=== PATIENT | female | born 1970 | race American Indian/Alaskan Native ===

== ENCOUNTER 2017-05-19 20:20 | Emergency (ER) | payer BC, OTHER ==
[2017-05-19 20:20] VITALS: BMI 23.0
[2017-05-19 21:47] VITALS: TEMP 98; O2SAT 100
[2017-05-19] MEDS ORDERED: Magnesium Sulfate 2 gm/50 ml 2 GM/50 ML BAG IV STA (22:37)
[2017-05-19] MEDS ORDERED: Sodium Chloride 0.9% 1,000 ML IV STA (22:39)
--- NOTE | 2017-05-19 22:52 | ED PDOC ---
HPI: Headache Time Seen by Provider: 05/19/17 22:03 Chief Complaint (Nursing): Headache Chief Complaint (Provider): Headache and Dizziness History Per: Patient History/Exam Limitations: no limitations Onset/Duration Of Symptoms: Days (x1) Current Symptoms Are (Timing): Still Present Additional Complaint(s): 46 year old female with a past medical history of migraines, who presents to the ED complaining of headache and dizziness x 1 day. States she 's felt positional dizziness with a room spinning sensation. Also reports feelings of nausea throughout the day. States that during the afternoon her migraines began to peak. Reports typically taking Maxalt for migraines, but does not know if she should take it due to her Vertigo. Denies vomiting, but confirms intense nausea. Denies fever, cough, and shortness of breath. Also confirms light and sound sensitivity, but states they are typically associated with her migraines. PMD: Provider TBD Past Medical History Reviewed: Historical Data, Nursing Documentation, Vital Signs Vital Signs: Last Vital Signs Temp 98.0 F 05/19/17 21:44 Pulse 78 05/19/17 21:44 Resp 16 05/19/17 21:44 BP 138/72 05/19/17 21:44 Pulse Ox 100 05/19/17 21:44 - Medical History PMH: Migraine - Surgical History Surgical History: No Surg Hx - Family History Family History: States: Unknown Family Hx - Social History Current smoker - smoking cessation education provided: No Alcohol: None Drugs: Denies - Home Medications Home Medications: Ambulatory Orders Medication Instructions Recorded Prednisone 20 mg PO BID #8 tab 02/16/15 hydrOXYzine HCl [Atarax] 25 mg PO BID #10 tab 02/16/15 Meclizine [Antivert] 25 mg PO Q6 PRN #20 tab 05/20/17 Ondansetron ODT [Zofran ODT] 4 mg PO Q6 PRN #16 odt 05/20/17 - Allergies Allergies/Adverse Reactions: Allergies Allergy/AdvReac Type Severity Reaction Status Date / Time diphenhydramine Allergy URTICARIA Verified 05/19/17 21:43 [From Benadryl] metaxalone [From Skelaxin] Allergy URTICARIA Verified 05/19/17 21:43 Review of Systems ROS Statement: Except As Marked, All Systems Reviewed And Found Negative Constitutional: Negative for: Fever Respiratory: Negative for: Cough, Shortness of Breath Gastrointestinal: Positive for: Nausea. Negative for: Vomiting Neurological: Positive for: Headache, Dizziness Physical Exam - Reviewed Nursing Documentation Reviewed: Yes Vital Signs Reviewed: Yes - Physical Exam Appears: Positive for: Non-toxic, No Acute Distress Head Exam: Positive for: ATRAUMATIC, NORMAL INSPECTION, NORMOCEPHALIC Skin: Positive for: Normal Color, Warm, Dry. Negative for: Rash Eye Exam: Positive for: Normal appearance, EOMI, PERRL, Other (photosensitivity , but no photophobia). Negative for: Nystagmus Neck: Positive for: Normal, Painless ROM, Supple Cardiovascular/Chest: Positive for: Regular Rate, Rhythm. Negative for: Murmur Respiratory: Positive for: Normal Breath Sounds. Negative for: Respiratory Distress Gastrointestinal/Abdominal: Positive for: Normal Exam, Bowel Sounds, Soft. Negative for: Tenderness Back: Positive for: Normal Inspection. Negative for: L CVA Tenderness, R CVA Tenderness, Vertebral Tenderness Extremity: Positive for: Normal ROM. Negative for: Pedal Edema, Deformity Neurologic/Psych: Positive for: Alert, Oriented (x3). Negative for: Motor/ Sensory Deficits - Laboratory Results Result Diagrams: 05/19/17 23:19 05/19/17 23:19 - ECG O2 Sat by Pulse Oximetry: 100 (RA) Pulse Ox Interpretation: Normal Medical Decision Making Medical Decision Making: Time: 22:26 Initial Impression: 46 y/o female with headache, nausea, and vertiginous dizziness Initial Plan: --CMP --CBC w/ differential --Antivert 25mg PO --Magnesium Sulfate 2gm in 50ml IV --Toradol 15mg --Zofran Inj 4mg IV --Heplock Insertion --Reevaluation Patient reports headache has resolving. Still complains of mild intermittent persistent dizziness. Prescribed an additional dose of Mezicline. Labs show no clinically significant abnormalities besides anemia. She states she has chronic anemia. Patient is stable for discharge. Diagnosis is migraine and vertigo. Scribe Attestation: Documented by Addison Lagos, acting as a scribe for Marcell Morales MD. Provider Scribe Attestation: All medical record entries made by the Scribe were at my direction and personally dictated by me. I have reviewed the chart and agree that the record accurately reflects my personal performance of the history, physical exam, medical decision making, and the department course for this patient. I have also personally directed, reviewed, and agree with the discharge instructions and disposition. Disposition - Clinical Impression Clinical Impression: Migraine, Vertigo - Patient ED Disposition Is Patient to be Admitted: No - Disposition Disposition: Routine/Home Disposition Time: 00:57 Condition: STABLE Prescriptions: Meclizine [Antivert] 25 mg PO Q6 PRN #20 tab PRN Reason: Dizziness Ondansetron ODT [Zofran ODT] 4 mg PO Q6 PRN #16 odt PRN Reason: Nausea/Vomiting Instructions: Vertigo (a Type of Dizziness), Migraine Headaches in Adults Forms: [employer] (Algerian)
[2017-05-19] MEDS ORDERED: Magnesium Sulfate 2 gm/50 ml 2 GM/50 ML BAG ONE (22:53)
[2017-05-19 23:26] LABS: BASO # 0.1 K/uL (0.0-0.2); BASO % 1.1 % (0.0-2.0); EOS # 0.1 K/uL (0.0-0.7); EOS % 1.4 % (0.0-4.0); HEMOGLOBIN 9.9 g/dL (12.0-16.0); LYMPH # 1.4 K/uL (1.0-4.3); MEAN CELL VOLUME 69.7 fl (81.0-99.0); MEAN CORPUSCULAR HEMOGLOBIN 21.2 pg (27.0-31.0); MEAN CORPUSCULAR HGB CONC 30.5 g/dL (33.0-37.0); MONO # 0.4 K/uL (0.0-0.8); MONO % 7.2 % (0.0-10.0); NEUT # 4.1 K/uL (1.8-7.0); NEUT % 67.3 % (50.0-75.0); NRBC % 0.1 % (0.0-0.0); RBC 4.67 Mil/uL (3.80-5.20)
[2017-05-19 23:36] LABS: ALB/GLOB RATIO 1.3 (1.0-2.1); ALBUMIN 4.5 g/dL (3.5-5.0); ALT/SGPT 25 U/L (9-52); AST/SGOT 18 U/L (14-36); BLOOD UREA NITROGEN 15 mg/dl (7-17); CALCIUM 9.2 mg/dL (8.4-10.2); GFR AFRICAN-AMERICAN > 60; GFR NON-AFRICAN AMERICAN > 60
[2017-05-20 01:47] VITALS: BP 112/70; PULSE 70; RESP 18
== END 2017-05-20 01:48 | disposition home or self-care (01) ==
LOC: H.ER 20:20
DX: G43.909 Migraine, unspecified, not intractable, without status migrainosus (principal); R42 Dizziness and giddiness; D64.9 Anemia, unspecified
CPT/HCPCS: 80053; 81025; 85025; 96361; 96374; 96375; 99285; J1885; J2405; J7040